=== PATIENT | female | born 1950 | race Caucasian/White ===

== ENCOUNTER → 2020-05-21 14:40 | Outpatient (CLI) | payer MEDICARE | END | disposition home or self-care (01) | LOC: D.LABREF 14:40 | PROVIDERS: ATTEND Internal Medicine Hematology & Oncology | DX: D64.9 Anemia, unspecified (principal); A04.72 Enterocolitis due to Clostridium difficile, not specified as recurrent; Z86.19 Personal history of other infectious and parasitic diseases ==